=== PATIENT | male | born 1970 | race Caucasian/White ===

== ENCOUNTER 2019-09-05 17:51 | Inpatient (IN) | payer SELFPAY ==
[2019-09-05] MEDS ORDERED: Multivitamins, Adult 10 ML, Thiamine HCl 100 MG, Folic Acid 1 MG in Dextrose 5 %-0.45 %... IV ONE (18:30)
[2019-09-05 18:38] LABS: #Basophils 0.1 thou/uL (0.0-0.2); #Lymphocytes 1.5 thou/uL (1.20-3.40); #Monocytes 1.1 thou/uL (0.11-0.59); #Neutrophils 7.1 thou/uL (1.40-6.50); %Basophils 0.8 % (0.0-1.0); %Eosinophils 0.2 % (0.0-10.0); %Lymphocytes 15.1 % (21.0-51.0); %Monocytes 11.1 % (0.0-10.0); %Neutrophils 72.8 % (42.0-75.0); Hemoglobin 16.2 g/dL (14.0-18.0); Mean Corpuscular HGB CONC 35.3 g/dL (32.0-36.0); Mean Corpuscular Hemoglobin 36.7 pg (27.0-31.0); Mean Platelet Volume 9.3 fL (7.4-10.4); Platelet Count 92 thou/uL (130-400); RBC Distribution Width 12.6 % (11.5-14.5); Red Blood Cell (RBC) Count 4.42 mill/uL (4.70-6.10); White Blood Cell (WBC) Count 9.8 thou/uL (4.8-10.8)
--- NOTE | 2019-09-05 18:51 | CT ---
CT OF BRAIN PERFORMED WITHOUT CONTRAST ENHANCEMENT: 09/05/19 HISTORY: Altered mental status. The ventricular and cisternal system is within normal limits. There is some motion artifact present. There are no signs of intracerebral hemorrhage or extra-axial fluid collections. The mastoid air cell s are clear. There is some mucosal change within the right maxillary sinus. IMPRESSION: No acute intracranial abnormalities. POS: [facility]
[2019-09-05 18:53] LABS: ALT (SGPT) 55 U/L (8-55); AST (SGOT) 92 U/L (5-34); Albumin 4.1 g/dL (3.5-5.0); Alkaline Phosphatase 78 U/L (40-110); Anion Gap 21 mmol/L (10-20); BUN (Urea Nitrogen) 21 mg/dL (8.9-20.6); Bilirubin, Total 3.3 mg/dL (0.2-1.2); CK (CPK) 656 U/L (30-200); Calc. Creatinine Clearance 0 mL/min (70-130); Calcium 8.8 mg/dL (7.8-10.44); Carbon Dioxide 31 mmol/L (22-29); Chloride 87 mmol/L (98-107); Estimated GFR-MDRD 43; Globulin 2.6 g/dL (2.4-3.5); Glucose 109 mg/dL (70-105); Lipase 33 U/L (8-78); Potassium 3.1 mmol/L (3.5-5.1); Protein, Total 6.7 g/dL (6.0-8.3); Sodium 136 mmol/L (136-145)
[2019-09-05 19:07] LABS: Base Excess-Venous 8.8 mmol/L (-2.0 to 3.0); CO2 Tension (PvCO2) 30.4 mmHg (40.0-50.0); Calcium, Ionized 0.87 mmol/L (See Comments:); Chloride 90 mmol/L (98-107); Potassium 2.5 mmol/L (3.5-5.1); Sodium 132 mmol/L (138-145); T. Carbon Dioxide 30.9 mmol/L (22.0-28.0)
[2019-09-05 19:08] LABS: CKMB 5.4 ng/mL (0-6.6)
[2019-09-05] MEDS ORDERED: Lorazepam 2 MG/ML VIAL ONE (19:42)
[2019-09-05] MEDS ORDERED: D5 1/2 NS w/20 mEq KCL 1,000 ML IV SCH (19:45)
--- NOTE | 2019-09-05 19:48 | PDOC.FPRHP ---
- History of Present Illness Chief Complaint: seizure History of Present Illness: 49 yo male presents with vomiting for four days and po intolerance for 4 days. Per elderly [id number], pt had a seizure earlier today. Pt reports that he came out of the bathroom, sat on couch, started feeling weak, and he fell to the floor. He doesn't think he passed out entirely. Denied incontinence during episode. [id number] endorsed grand mal seizure as she has a hx of them too and "knows what they look like." He drinks 1/2 gallon vodka every two days. He has been trying to quit drinking. He has a hx of alcohol use/abuse and withdrawal symptoms, including hospitalization for DTs. He says he had sx of DTs last night. He had some hallucinations last night. He reports a hx of liver disease but says it's not cirrhosis. He endorses remote hx of drug use, meth/ marijuana/benzos. Last drink of alcohol was this morning, took a shot of vodka. Tries to take shots every couple of hours "to keep the DTs away." ED Course: Received ativan 1mg, a banana bag, and one liter of D5 1/2 NS with 20 KCL - Allergies/Adverse Reactions Allergies Allergy/AdvReac Type Severity Reaction Status Date / Time No Known Allergies Allergy Unverified 09/05/19 18:24 - Home Medications Medication Instructions Recorded Confirmed Type Ibuprofen 200 mg PO DAILY 09/05/19 09/05/19 History Diazepam [Valium] 5 mg PO Q4H PRN tab 09/08/19 Rx Folic Acid [Folvite] 1 mg PO DAILY #30 tab 09/08/19 Rx Multivitamin W/ Minerals 1 tab PO DAILY #30 tab 09/08/19 Rx [Theragran M] Thiamine 100 mg PO DAILY #30 tab 09/08/19 Rx chlordiazePOXIDE HCl [Librium] 50 mg PO TID cap 09/08/19 Rx - History PMHx:Type 2 diabetes, Liver disease, Alcohol use/abuse, Hx of DTs PSHx: hernia repair, oral surgery FHx:parents Social: drinking alcohol since teenager, drinks 1/2 gallon every other day; smokes 1 ppd, denies drug use currently, hx of meth/marijuana/benzos; recent divorce - Review of Systems General: reports: weight/appetite/sleep changes. denies: fever/chills Eyes: denies: eye pain, vision changes ENT: denies: nasal congestion, rhinorrhea Respiratory: denies: cough, shortness of breath Gastrointestinal: reports: nausea, vomiting, diarrhea Genitourinary: denies: dysuria Skin: denies: rashes, lesions Musculoskeletal: denies: tenderness, stiffness Neurological: reports: seizure - Vital signs BP: 127/87 HR: 120 RR: 29 Tmax: Pox: 99% on RA Wt: 94.665kg - Physical Exam Constitutional: NAD, other (drowsy, but oriented x 3) HEENT: normocephalic and atraumatic, other (dry mm) Neck: supple, FROM Chest: no-tender to palpation, no lesions Heart: RRR, normal S1/S2 Lungs: CTAB, no respiratory distress Abdomen: soft, non-tender Musculoskeletal: normal structure, ROM grossly normal Neurological: normal sensation, other (A&Ox3) Skin: other (poor turgor) Heme/Lymphatic: no unusual bruising or bleeding, other (scattered purpura bilateral arms) FMR H&P: Results - Labs Result Diagrams: 09/06/19 03:56 09/08/19 03:36 Lab results: WBC 9.8 thou/uL (4.8-10.8) 09/05/19 18:18 Hgb 16.2 g/dL (14.0-18.0) 09/05/19 18:18 Hct 46.0 % (42.0-52.0) 09/05/19 18:18 MCV 104.0 fL (78.0-98.0) H 09/05/19 18:18 Plt Count 92 thou/uL (130-400) L 09/05/19 18:18 Neutrophils % 72.8 % (42.0-75.0) 09/05/19 18:18 VBG pCO2 30.4 mmHg (40.0-50.0) L 09/05/19 18:46 VBG pO2 57.5 mmHg (35.0-45.0) H 09/05/19 18:46 Sodium 136 mmol/L (136-145) 09/05/19 18:18 Potassium 3.1 mmol/L (3.5-5.1) L 09/05/19 18:18 Chloride 87 mmol/L (98-107) L 09/05/19 18:18 Carbon Dioxide 31 mmol/L (22-29) H 09/05/19 18:18 BUN 21 mg/dL (8.9-20.6) H 09/05/19 18:18 Creatinine 1.72 mg/dL (0.7-1.3) H 09/05/19 18:18 Glucose 109 mg/dL (70-105) H 09/05/19 18:18 Lactic Acid 4.4 mmol/L (0.5-2.2) H* 09/05/19 18:51 Calcium 8.8 mg/dL (7.8-10.44) 09/05/19 18:18 Total Bilirubin 3.3 mg/dL (0.2-1.2) H 09/05/19 18:18 AST 92 U/L (5-34) H 09/05/19 18:18 ALT 55 U/L (8-55) 09/05/19 18:18 Alkaline Phosphatase 78 U/L (40-110) 09/05/19 18:18 Ammonia 35 umol/L (18-72) 09/05/19 18:18 Creatine Kinase 656 U/L (30-200) H 09/05/19 18:18 CK-MB (CK-2) 5.4 ng/mL (0-6.6) 09/05/19 18:18 B-Natriuretic Peptide 98.1 pg/mL (0-100) 09/05/19 18:18 Serum Total Protein 6.7 g/dL (6.0-8.3) 09/05/19 18:18 Albumin 4.1 g/dL (3.5-5.0) 09/05/19 18:18 Lipase 33 U/L (8-78) 09/05/19 18:18 - EKG Interpretation EKG: Sinus tach FMR H&P: A/P - Problem List (1) Alcohol withdrawal Status: Acute Code(s): F10.239 - ALCOHOL DEPENDENCE WITH WITHDRAWAL, UNSPECIFIED (2) Hypokalemia Status: Acute Code(s): E87.6 - HYPOKALEMIA (3) MARY ANN (acute kidney injury) Status: Resolved Code(s): N17.9 - ACUTE KIDNEY FAILURE, UNSPECIFIED (4) Metabolic alkalosis Status: Resolved Code(s): E87.3 - ALKALOSIS (5) DM2 (diabetes mellitus, type 2) Status: Chronic Qualifiers: Diabetes mellitus senior care insulin use: without senior care use Diabetes mellitus complication status: without complication Qualified Code(s): E11.9 - Type 2 diabetes mellitus without complications (6) Hx of drug abuse Status: Chronic Code(s): F19.11 - OTHER PSYCHOACTIVE SUBSTANCE ABUSE, IN REMISSION - Plan Patient is a 49M with pmhx of EM2, hx of drug abuse, hx of DTs, hx of "liver disease, not cirrhosis" admitted for: #Alcohol withdrawal -patient has reportedly been continuously vomiting for the last 4 days -alcohol level 0 at outside ED -extensive hx of alcohol abuse for last 2-3 years, drinking 1/2 gallon vodka q2days -patient has hx of DTs, reportedly seized this morning witnessed by his girlfriend's grandmother -received ativan and banabag in the ED -ASE protocol -thiamine, folic acid, mag -IVF -admitted to [facility] for closer monitoring #Hypokalemia -potassium 3.1 -started on D5 1/2SN + 20meqKCl -will replete and continue to monitor #Anion gap Metabolic alkalosis -pH 7.6 -likely due to patient's continuous vomiting -will continue to monitor, will likely correct with fluid resuscitation #DM2 -reportedly has hx, not on any meds -will check A1C -ISS -ACHS accuchecks Diet: Clears, advance as tolerated DVTppx; lovenox Dispo: admitted to IM for increased monitoring; ASE protocol in place; will continue to monitor electrolytes and replete as necessary Code: DNAR PCP: KEL FMKhang H&P: Upper Level - Plan Date/Time: 09/05/191946 49 yo male with alcohol use/abuse admitted for alcohol withdrawal. We admitted him to IMCU and will monitor him closely for DTs. He was placed on the ASE protocol and ordered ativan prn. We will trend his labs as his potassium has been low. He received a banana bag in the ER. He also has type 2 diabetes and initially was hyperglycemic but did not meet criteria for DKA or HHS. We will monitor his blood sugars carefully. Olivia Edwards MD, PGY-3 have evaluated this patient and agree with findings/ plan as outlined by internal combustion engine assembler resident. Pertinent changes/additions are listed here. Addendum - Attending - Attending Attestation Date/Time: 09/10/19 7449 I personally evaluated the patient and discussed the management with Dr. Enciso at time of admission. I agree with the History, Examination, Assessment and Plan documented above with any addition or exceptions noted below.
[2019-09-05 19:55] LABS: Bacteria/HPF 1+ HPF (None Seen); Bilirubin Negative (Negative); Blood, Urine 2+ (Negative); Clarity Turbid (Clear); Glucose, Urine (Dipstick) 50 mg/dL (Negative); Leukocyte Negative Leu/uL (Negative); Nitrite Negative (Negative); Protein, Urine (Dipstick) 200 mg/dL (Neg-Trace); RBC/HPF 0-3 HPF (0-3)
[2019-09-05 20:01] LABS: Amphetamine Not Detected (NotDetected); Barbiturates Screen Not Detected (NotDetected); Benzodiazepine Screen Detected (NotDetected); Cocaine Metabolite Screen Not Detected (NotDetected); Medtox Reader # READER 4; Methadone Not Detected (NotDetected); Methamphetamine Not Detected (NotDetected); Opiate Screen Not Detected (NotDetected); Oxycodone Screen Not Detected (NotDetected); Phencyclidine (PCP) Not Detected (NotDetected); THC/Cannabinoid Screen Not Detected (NotDetected); Tricyclic Screen Not Detected (NotDetected)
[2019-09-05 20:02] LABS: Medtox Control Line Valid? VALID (VALID)
[2019-09-05] MEDS ORDERED: D5 1/2 NS w/20 mEq KCL 1,000 ML ONE (20:17)
[2019-09-05] MEDS ORDERED: Ondansetron ODT 4 MG TAB SL PRN (21:56)
[2019-09-05] MEDS ORDERED: Ondansetron PF 4 MG/2 ML Vial IVP PRN (21:56)
[2019-09-05] MEDS ORDERED: Lorazepam 2 MG/ML VIAL SLOW IVP PRN (21:57)
[2019-09-05] MEDS ORDERED: Dextrose 5 %-0.45 % NaCl 1,000 ML IV SCH (22:00)
[2019-09-05 22:14] VITALS: BMI 28.3
[2019-09-05] MEDS ORDERED: Diazepam 5 MG TAB PO PRN (22:14)
[2019-09-05] MEDS ORDERED: Diazepam 5 MG TAB PO SCH (22:15)
[2019-09-05] MEDS ORDERED: HumaLOG 300 UNITS/3 ML VIAL SC PRN ×2 (22:33)
[2019-09-05] MEDS ORDERED: Dextrose 50% Abboject 50 ML SYRINGE SLOW IVP PRN (22:33)
[2019-09-05] MEDS ORDERED: Dextrose 5% in Water 1,000 ML IV PRN (22:33)
[2019-09-05 22:51] LABS: Troponin I 0.039 ng/mL (< 0.028)
[2019-09-05 22:54] LABS: Anion Gap 14 mmol/L (10-20); BUN (Urea Nitrogen) 19 mg/dL (8.9-20.6); Calc. Creatinine Clearance 88 mL/min (70-130); Calcium 8.4 mg/dL (7.8-10.44); Carbon Dioxide 36 mmol/L (22-29); Chloride 87 mmol/L (98-107); Estimated GFR-MDRD 55; Glucose 148 mg/dL (70-105); Sodium 134 mmol/L (136-145)
[2019-09-05] MEDS: Sodium Chloride 0.9% 1,000 ML IV SCH (23:08)
[2019-09-05 23:11] LABS: Potassium 2.5 mmol/L (3.5-5.1)
[2019-09-05] MEDS ORDERED: Potassium Chloride 40 MEQ in Sodium Chloride 0.9% 500 ML IVPB SCH (23:59)
[2019-09-06 01:25] LABS: Troponin I 0.029 ng/mL (< 0.028)
[2019-09-06 04:13] LABS: #Monocytes 0.7 thou/uL (0.11-0.59); #Neutrophils 4.4 thou/uL (1.40-6.50); %Basophils 0.4 % (0.0-1.0); %Eosinophils 0.3 % (0.0-10.0); %Lymphocytes 28.3 % (21.0-51.0); %Monocytes 9.8 % (0.0-10.0); %Neutrophils 61.3 % (42.0-75.0); Mean Corpuscular HGB CONC 34.5 g/dL (32.0-36.0); Mean Corpuscular Hemoglobin 36.3 pg (27.0-31.0); Platelet Count 82 thou/uL (130-400); RBC Distribution Width 12.5 % (11.5-14.5); Red Blood Cell (RBC) Count 4.14 mill/uL (4.70-6.10); White Blood Cell (WBC) Count 7.1 thou/uL (4.8-10.8)
[2019-09-06 04:24] LABS: Hemoglobin A1c 5.4 % (4.0-6.0)
[2019-09-06 04:34] LABS: Anion Gap 12 mmol/L (10-20); BUN (Urea Nitrogen) 16 mg/dL (8.9-20.6); Calc. Creatinine Clearance 108 mL/min (70-130); Calcium 8.2 mg/dL (7.8-10.44); Carbon Dioxide 34 mmol/L (22-29); Chloride 92 mmol/L (98-107); Estimated GFR-MDRD 70; Glucose 113 mg/dL (70-105); Sodium 135 mmol/L (136-145)
[2019-09-06] MEDS: Diazepam 5 MG TAB PO PRN ×4 (04:37→23:39)
[2019-09-06 04:38] LABS: Potassium 2.8 mmol/L (3.5-5.1)
[2019-09-06 04:42] VITALS: BP 153/104
[2019-09-06] MEDS ORDERED: Potassium Chloride 40 MEQ in Premix Bag 1 BAG IVPB ONE (04:46)
[2019-09-06] MEDS ORDERED: Potassium Chloride 40 MEQ in Sodium Chloride 0.9% 250 ML 250 ML IVPB SCH (05:00)
[2019-09-06] MEDS ORDERED: Metoclopramide HCl 10 MG/2 ML VIAL IVP SCH (05:00)
[2019-09-06] MEDS: Sodium Chloride 0.9% 1,000 ML IV SCH ×3 (05:15→16:10)
--- NOTE | 2019-09-06 06:37 | PDOC.FM ---
- Subjective Subjective: Pt feels slightly agitated and shaky. Pt has hx of DT's and withdraw seizures. hx of liver disease, was being treated in [place], recently moved here. well known etoh abuse. - Objective MAR Reviewed: Yes Vital Signs & Weight: Vital Signs (12 hours) Temp Pulse Resp BP Pulse Ox 09/06/19 04:00 98.3 F 114 H 24 H 153/104 H 95 09/06/19 03:00 98.3 F 96 24 H 139/97 H 95 09/05/19 23:00 98.3 F 113 H 24 H 118/92 H 95 09/05/19 22:03 95 09/05/19 22:00 98.2 F 114 H 30 H 121/89 94 L Weight Weight 94.665 kg I&O: 09/04/19 09/05/19 09/06/19 06:59 06:59 06:59 Intake Total 2100 Output Total 300 Balance 1800 Result Diagrams: 09/06/19 03:56 09/06/19 03:56 Phys Exam - Physical Examination shaky, slightly agitated HEENT: moist MMs scleral icterus Neck: no nodes, no JVD, supple Respiratory: no wheezing, no rales, no rhonchi, clear to auscultation bilateral Cardiovascular: no significant murmur tachycardic Gastrointestinal: soft, non-tender, positive bowel sounds Musculoskeletal: no edema, pulses present Neurological: non-focal, moves all 4 limbs slight asterixis Psychiatric: normal affect, A&O x 3 Dx/Plan (1) MARY ANN (acute kidney injury) Code(s): N17.9 - ACUTE KIDNEY FAILURE, UNSPECIFIED Status: Acute (2) Alcohol withdrawal Code(s): F10.239 - ALCOHOL DEPENDENCE WITH WITHDRAWAL, UNSPECIFIED Status: Acute (3) Hypokalemia Code(s): E87.6 - HYPOKALEMIA Status: Acute (4) Metabolic alkalosis Code(s): E87.3 - ALKALOSIS Status: Acute (5) DM2 (diabetes mellitus, type 2) Status: Chronic - Plan Plan: Patient is a 49M with pmhx of EM2, hx of drug abuse, hx of DTs, hx of "liver disease, not cirrhosis" admitted for: #Alcohol withdrawal -patient has reportedly been continuously vomiting for the last 4 days before admission -alcohol level 0 at outside ED -extensive hx of alcohol abuse for last 2-3 years, drinking 1/2 gallon vodka q2days -patient has hx of DTs, reportedly seized morning of admission witnessed by his girlfriend's grandmother -received ativan and banabag in the ED -ASE protocol, PRN ativan. Nursing has not been following protocol, had conversation and will be following ASE per protocol. -thiamine, folic acid, mag -IVF -admitted to IMCU for closer monitoring #MARY ANN, improved - Cr 3.04-> 1.13 - post IVF's #Hypokalemia -potassium 3.1-> 2.8, BMP repeat at 10:30 -started on D5 1/2SN + 20meqKCl -will replete and continue to monitor #Anion gap Metabolic alkalosis -pH 7.6 -likely due to patient's continuous vomiting -will continue to monitor, will likely correct with fluid resuscitation #DM2 -reportedly has hx, not on any meds -will check A1C -ISS -ACHS accuchecks Diet: Clears, advance as tolerated DVTppx; lovenox Dispo: admitted to IMCU for increased monitoring; ASE protocol in place; will continue to monitor electrolytes and replete as necessary Code: DNAR PCP: KEL Addendum - Attending - Attending Attestation Date/Time: 09/06/19 1040 I personally evaluated the patient and discussed the management with Dr. Quintanilla. I agree with the History, Examination, Assessment and Plan documented above with any addition or exceptions noted below.
[2019-09-06 07:06] LABS: Prothrombin Time 13.2 SEC (12.0-14.7)
[2019-09-06] MEDS: Multivitamin W/ Minerals 1 TAB PO SCH (07:33)
[2019-09-06] MEDS: Magnesium Oxide 400 MG TAB PO SCH (07:33)
[2019-09-06] MEDS: Folic Acid 1 MG TAB PO SCH (07:33)
[2019-09-06] MEDS: Thiamine 100 MG TAB PO SCH (07:33)
[2019-09-06] MEDS: Enoxaparin Sodium 40 MG/0.4 ML SYRINGE SC SCH (07:33)
[2019-09-06] MEDS ORDERED: Potassium Chloride 20 MEQ TAB PO SCH ×2 (09:30→11:30)
[2019-09-06] MEDS: chlordiazePOXIDE HCl 25 MG CAP PO SCH ×3 (10:41→21:41)
[2019-09-06 11:02] LABS: Anion Gap 12 mmol/L (10-20); BUN (Urea Nitrogen) 14 mg/dL (8.9-20.6); Calc. Creatinine Clearance 125 mL/min (70-130); Carbon Dioxide 31 mmol/L (22-29); Chloride 96 mmol/L (98-107); Estimated GFR-MDRD 82; Glucose 99 mg/dL (70-105); Potassium 3.1 mmol/L (3.5-5.1); Sodium 136 mmol/L (136-145)
[2019-09-06 17:01] LABS: Anion Gap 12 mmol/L (10-20); BUN (Urea Nitrogen) 11 mg/dL (8.9-20.6); Calc. Creatinine Clearance 131 mL/min (70-130); Calcium 8.3 mg/dL (7.8-10.44); Carbon Dioxide 28 mmol/L (22-29); Chloride 100 mmol/L (98-107); Estimated GFR-MDRD 87; Glucose 77 mg/dL (70-105); Sodium 136 mmol/L (136-145)
[2019-09-07] MEDS: Sodium Chloride 0.9% 1,000 ML IV SCH ×2 (02:00→07:30)
[2019-09-07 04:25] LABS: Anion Gap 11 mmol/L (10-20); BUN (Urea Nitrogen) 7 mg/dL (8.9-20.6); Calc. Creatinine Clearance 151 mL/min (70-130); Carbon Dioxide 24 mmol/L (22-29); Chloride 104 mmol/L (98-107); Estimated GFR-MDRD Greater than 90; Glucose 81 mg/dL (70-105); Potassium 3.4 mmol/L (3.5-5.1); Sodium 136 mmol/L (136-145)
[2019-09-07] MEDS: chlordiazePOXIDE HCl 25 MG CAP PO SCH ×4 (04:55→21:08)
--- NOTE | 2019-09-07 05:34 | PDOC.FM ---
- Subjective Subjective: Pt notes feeling much better this morning, only mild-moderate tremulousness remains States he is interested in ways he can make his liver better- discussed alcohol cessation Pt understands he cannot take the librium and drink upon discharge No hallucinations, sz activity, or acute events overnight - Objective Vital Signs & Weight: Vital Signs (12 hours) Temp Pulse Ox 09/07/19 03:55 97.9 F 09/07/19 00:00 98.7 F 09/06/19 20:00 98.3 F 98 Weight Weight 98.021 kg Most Recent Monitor Data Heart Rate from ECG 76 NIBP 98/76 NIBP BP-Mean 83 Respiration from ECG 15 SpO2 93 I&O: 09/05/19 09/06/19 09/07/19 06:59 06:59 06:59 Intake Total 2100 2860 Output Total 600 2325 Balance 1500 535 Result Diagrams: 09/06/19 03:56 09/07/19 03:21 Phys Exam - Physical Examination Constitutional: NAD HEENT: moist MMs Neck: no JVD, full ROM Respiratory: no wheezing, no rales, no rhonchi Cardiovascular: RRR, no significant murmur Gastrointestinal: soft, non-tender Musculoskeletal: no edema, pulses present Mild tremor of the hands bilaterally Psychiatric: normal affect, A&O x 3 Skin: no rash, cap refill <2 seconds Dx/Plan (1) Delirium tremens Code(s): F10.231 - ALCOHOL DEPENDENCE WITH WITHDRAWAL DELIRIUM Status: Acute (2) MARY ANN (acute kidney injury) Code(s): N17.9 - ACUTE KIDNEY FAILURE, UNSPECIFIED Status: Resolved (3) Hypokalemia Code(s): E87.6 - HYPOKALEMIA Status: Acute (4) Metabolic alkalosis Code(s): E87.3 - ALKALOSIS Status: Resolved (5) DM2 (diabetes mellitus, type 2) Status: Chronic Qualifiers: Diabetes mellitus buttermilk drier operator insulin use: without senior living use Diabetes mellitus complication status: without complication Qualified Code(s): E11.9 - Type 2 diabetes mellitus without complications (6) Hx of drug abuse Code(s): F19.11 - OTHER PSYCHOACTIVE SUBSTANCE ABUSE, IN REMISSION Status: Chronic - Plan Plan: Patient is a 49M with pmhx of EM2, hx of drug abuse, hx of DTs, hx of "liver disease, not cirrhosis" admitted for: Alcohol withdrawal -ASE protocol, tx with diazepam per protocol and scheduled librium -current ASE ratin -required 4 diazepam yesterday -thiamine, folic acid, mag -IVF MARY ANN, resolved - Cr 3.04-> 0.81 Hypokalemia -potassium 3.4 this morning -will replete and continue to monitor Anion gap Metabolic alkalosis -pH 7.6 initially -likely resolved following correction of metabolic derangements DM2 -reportedly has hx, not on any meds -A1c 5.4 Diet: Clears, advance as tolerated DVTppx; lovenox Code: DNAR Dispo: admitted to [facility] for increased monitoring; ASE protocol in place; required diazepam tx for withdrawal sx last night based on ASE protocol, will likely need to watch him for the remainder of the day and possible DC home later today vs tomorrow. Pt will likely require librium taper upon discharge if he is willing to continue his alcohol cessation. PCP: KEL
[2019-09-07] MEDS: Magnesium Oxide 400 MG TAB PO SCH (07:29)
[2019-09-07] MEDS: Enoxaparin Sodium 40 MG/0.4 ML SYRINGE SC SCH (07:30)
[2019-09-07] MEDS: Thiamine 100 MG TAB PO SCH (07:30)
[2019-09-07] MEDS: Multivitamin W/ Minerals 1 TAB PO SCH (07:30)
[2019-09-07] MEDS: Folic Acid 1 MG TAB PO SCH (07:30)
[2019-09-07] MEDS ORDERED: Potassium Chloride 20 MEQ TAB PO SCH (07:45)
--- NOTE | 2019-09-07 12:03 | PRG ---
DATE OF SERVICE: 09/07/2019 Please see the note from Dr. Valenzuela, for which I agree. This gentleman is doing drastically better from a tremor and delirium tremens standpoint. Getting a lot less as needed Valium and is on the consistent Librium. If he can go almost today without needing any more Valium, we will send out just on a Librium taper and do highly recommend outpatient therapy. It sounds like he does not have insurance and so a minimum go to [facility]. Job ID: [id number]
[2019-09-07] MEDS: Diazepam 5 MG TAB PO PRN ×2 (14:19→22:17)
[2019-09-08 04:56] LABS: Anion Gap 12 mmol/L (10-20); BUN (Urea Nitrogen) 6 mg/dL (8.9-20.6); Calc. Creatinine Clearance 178 mL/min (70-130); Calcium 8.4 mg/dL (7.8-10.44); Carbon Dioxide 24 mmol/L (22-29); Chloride 106 mmol/L (98-107); Estimated GFR-MDRD Greater than 90; Glucose 91 mg/dL (70-105); Potassium 3.5 mmol/L (3.5-5.1); Sodium 138 mmol/L (136-145)
[2019-09-08] MEDS: chlordiazePOXIDE HCl 25 MG CAP PO SCH ×2 (05:16→11:14)
--- NOTE | 2019-09-08 05:29 | PDOC.FM ---
- Subjective Subjective: Pt doing well this morning, denies any events overnight Feels his tremors have improved Looking forward to discharge today Agrees to cease alcohol consumption and follow librium taper - Objective Vital Signs & Weight: Vital Signs (12 hours) Temp Pulse Ox 09/08/19 04:00 98.1 F 09/08/19 00:00 99.4 F 09/07/19 21:17 98.7 F 09/07/19 20:00 97 Weight Weight 98.021 kg Most Recent Monitor Data Heart Rate from ECG 91 NIBP 132/66 NIBP BP-Mean 88 Respiration from ECG 19 SpO2 97 I&O: 09/06/19 09/07/19 09/08/19 06:59 06:59 06:59 Intake Total 2100 4515 340 Output Total 600 2325 2600 Balance 1500 2190 -2260 Result Diagrams: 09/06/19 03:56 09/08/19 03:36 Phys Exam - Physical Examination Constitutional: NAD HEENT: moist MMs Neck: supple, full ROM Respiratory: no wheezing, clear to auscultation bilateral Cardiovascular: RRR, no significant murmur Gastrointestinal: soft, non-tender Musculoskeletal: no edema, pulses present Neurological: moves all 4 limbs Psychiatric: normal affect, A&O x 3 Skin: no rash Dx/Plan (1) Delirium tremens Code(s): F10.231 - ALCOHOL DEPENDENCE WITH WITHDRAWAL DELIRIUM Status: Acute (2) MARY ANN (acute kidney injury) Code(s): N17.9 - ACUTE KIDNEY FAILURE, UNSPECIFIED Status: Resolved (3) Hypokalemia Code(s): E87.6 - HYPOKALEMIA Status: Acute (4) Metabolic alkalosis Code(s): E87.3 - ALKALOSIS Status: Resolved (5) DM2 (diabetes mellitus, type 2) Status: Chronic Qualifiers: Diabetes mellitus snf insulin use: without snf use Diabetes mellitus complication status: without complication Qualified Code(s): E11.9 - Type 2 diabetes mellitus without complications (6) Hx of drug abuse Code(s): F19.11 - OTHER PSYCHOACTIVE SUBSTANCE ABUSE, IN REMISSION Status: Chronic - Plan Plan: Patient is a 49M with pmhx of EM2, hx of drug abuse, hx of DTs, hx of "liver disease, not cirrhosis" admitted for: Alcohol withdrawal -ASE protocol, tx with diazepam per protocol and scheduled librium -current ASE ratin -required 2 diazepam yesterday -thiamine, folic acid, mag - to continue as outpt MARY ANN, resolved Hypokalemia - resolved Anion gap Metabolic alkalosis -appears resolved based on BMP DM2 - diet controlled -reportedly has hx, not on any meds -A1c 5.4 Diet: Clears, advance as tolerated DVTppx; lovenox Code: DNAR Dispo: Admitted to IMCU for increased monitoring. ASE protocol in place. Required diazepam tx for withdrawal sx last night based on ASE protoco. Has continually required less benzo tx per protocol. Will plan to discharge home today with an increase in his librium and taper it.
[2019-09-08] MEDS: Thiamine 100 MG TAB PO SCH (07:45)
[2019-09-08] MEDS: Multivitamin W/ Minerals 1 TAB PO SCH (07:45)
[2019-09-08] MEDS: Folic Acid 1 MG TAB PO SCH (07:45)
[2019-09-08] MEDS: Magnesium Oxide 400 MG TAB PO SCH (07:45)
[2019-09-08] MEDS: Enoxaparin Sodium 40 MG/0.4 ML SYRINGE SC SCH (07:46)
--- NOTE | 2019-09-08 10:56 | PRG ---
DATE OF SERVICE: 09/08/2019 Please see note [address] Valenzuela, for which I agree. The patient was seen, evaluated, and discussed with the residents by bedside and examined. The patient is doing phenomenally better. Feels like he is needing less benzodiazepines. No more as needed Valium at this point in time. Has social support setup. He is ready to be discharged and will be. Job ID: [id number]
[2019-09-08 11:24] VITALS: TEMP 98
--- NOTE | 2019-09-08 12:55 | DIS ---
DATE OF ADMISSION: 09/05/2019 DATE OF DISCHARGE: 09/08/2019 ADMITTING ATTENDING: Carmelo Cox MD. DISCHARGE ATTENDING: Tulio Pedraza MD. RESIDENT: Alexander Valenzuela DO. CONSULTS: None. PROCEDURES: None. IMAGING: Brain CT without contrast showing no acute intracranial abnormalities. PRIMARY DIAGNOSES: Delirium tremens, acute alcohol withdrawal, acute kidney injury, metabolic alkalosis. SECONDARY DIAGNOSES: Hypokalemia, diabetes mellitus type 2, history of drug abuse. DISCHARGE MEDICATIONS: 1. Ibuprofen 200 mg daily. 2. Librium 50 mg p.o. t.i.d. for 3 days, and then b.i.d. for 3 days, then daily for 3 days. 3. Folvite 1 mg p.o. daily. 4. Theragran one tablet p.o. daily. 5. Thiamin 100 mg p.o. daily. HISTORY OF PRESENT ILLNESS AND HOSPITAL COURSE: This is a 49-year-old male, who presented to the ED with vomiting for 4 days. The patient's elderly uerurj-mk-ued noted that he had a seizure earlier in the day. The patient reported that since his divorce 2 years ago, he has been drinking approximately a half a gallon of vodka every 2 days. He has recently been trying to quit drinking with his last drink approximately 4 days prior to admission. The patient notes that he had a history of DTs with previous hospitalization in his past. The patient noted a remote history of drug use including methamphetamines, marijuana, and benzodiazepines. The patient received 1 mg of Ativan in the emergency department as well as a banana bag and a L of D5 1/2 normal saline with 20 KCl. The patient's labs were significant for a blood gas showing a metabolic alkalosis, CMP showing hypokalemia, acute kidney injury with a creatinine of 1.72, a bilirubin of 3.3, and an indeterminate troponin. The patient was subsequently admitted to the hospital for MARVEL protocol and delirium tremens. The patient's troponin subsequently trended down. His acute kidney injury resolved with intravenous fluids. His delirium tremens was treated with MARVEL protocol and scheduled Librium with p.r.n. Valium. At the time of discharge, the patient had not required any Valium for greater than 12 hours and had an MARVEL score of 7. The patient was discharged with a Librium taper and educated on the risks of drinking while taking Librium. He reported that he plans to continue his alcohol cessation and expressed understanding of these directions. DISCHARGE INSTRUCTIONS: 1. Location: Home. 2. Diet: Diabetic. 3. Activity: As tolerated. 4. Followup: PCP within the next 7 days. Job ID: [id number]
--- NOTE | 2019-09-10 21:41 | PQF ---
Roberto Romo RUSSEL B MD [id number] CLINICAL DOCUMENTATION CLARIFICATION FORM: POST DISCHARGE Addendum to original discharge summary date: ____ Late entry note date: __ DATE:09/10/2019 ATTN: ERIN FARFAN MD Please exercise your independent, professional judgment in responding to the clarification form. Clinical indicators are provided on the bottom of this form for your review Please check appropriate box(s): kindly clarify the diagnosis occasioning on admission [ ] Acute alcohol withdrawal with delirium [ ] Acute kidney injury [ ] Other diagnosis [ ] Unable to determine For continuity of documentation, please document condition throughout progress notes and discharge summary. Thank You. CLINICAL INDICATORS - SIGNS / SYMPTOMS / LABS 49 yo male with alcohol use /abuse admitted for alcohol withdrawal. We admitted him to [facility] and will monitor him closely for DTs-Documented in H&P on 09/04 by Lenka Enciso MD Social:Drinking alcohol since teenager, drinks 1/2 gallon every other day- Documented in H&P on 09/04 by Lenka Enciso MD Patient has reportedly been continuously vomiting for the las 4 days-Documented in H&P on 09/04 by Lenka Enciso MD Alcohol level 0 at outside ED-Documented in H&P on 09/04 by Lenka Enciso MD Alcohol withdrawal-Documented in H&P on 09/04 by Lenka Enciso MD Creatinine-1.72-Documented in H&P on 09/04 by Lenka Enciso MD MARY ANN-Documented in H&P on 09/04 by Lenka Enciso MD RISK FACTORS Social:Drinking alcohol since teenager, drinks 1/2 gallon every other day- Documented in H&P on 09/04 by Lenka Enciso MD Creatinine-1.72-Documented in H&P on 09/04 by Lenka Enciso MD TREATMENTS: Received Ativan 1 mg a banana bag and one liter of D5 1/2 NS with 20 KCL- Documented in H&P on 09/04 by Fernie, MARY ANN resolved with intravenous fluids-Documented in discharge summary on 09/07 by Alexander Valenzuela DO [employer] Timothy Lei MD (This form is maintained as a part of the permanent medical record) 2014 [employer] All Rights Reserved [email or web address]
--- NOTE | 2019-09-14 13:33 | EKG ---
Test Reason : Blood Pressure : / mmHG Vent. Rate : 125 BPM Atrial Rate : 125 BPM P-R Int : 124 ms QRS Dur : 086 ms QT Int : 336 ms P-R-T Axes : 022 -24 -16 degrees QTc Int : 484 ms Sinus tachycardia Possible Left atrial enlargement Cannot rule out Anterior infarct , age undetermined Abnormal ECG Confirmed by DANIELA CARRINGTON, BHAVANI ([id number]), restaurant expeditor ELMIRA ALMANZA ([id number]) on 09/14/2019 1:33:24 PM Referred By: Confirmed By:BHAVANI SUAREZ MD
== END 2019-09-08 12:03 | disposition home or self-care (01) | DRG 897 ==
LOC: ERS 17:51 → ERHOLD 19:53 → IMCU/EMU 21:54
PROVIDERS: ADMIT Family Medicine; ATTEND Family Medicine
PROC: HZ2ZZZZ Detoxification Services for Substance Abuse Treatment (ICD-10-PCS; principal; 2019-09-05)
DX: F10.231 Alcohol dependence with withdrawal delirium (principal); N17.9 Acute kidney failure, unspecified; E87.3 Alkalosis; E87.6 Hypokalemia; F19.11 Other psychoactive substance abuse, in remission; Y90.0 Blood alcohol level of less than 20 mg/100 ml; Z66 Do not resuscitate; E11.65 Type 2 diabetes mellitus with hyperglycemia; R79.9 Abnormal finding of blood chemistry, unspecified
CPT/HCPCS: 36415; 36416; 70450; 80048; 80306; 81003; 81015; 82010; 82140; 82330; 82550; 82553; 82607; 82746; 82803; 83036; 83605; 83690; 83735; 83880; 83930; 83935; 84484; 85025; 85610; 87040; 87086; 93005; 96365; 96366; 96375; J1650; J2060; J3411; J3475; J3480; J3490; J7042; J7050

== ENCOUNTER 2019-11-13 11:04 | Inpatient (IN) | payer SELFPAY ==
[2019-11-13] MEDS ORDERED: Lorazepam 2 MG/ML VIAL ONE ×2 (11:54→13:48)
[2019-11-13] MEDS ORDERED: Lorazepam 2 MG/ML VIAL SLOW IVP SCH (12:30)
[2019-11-13] MEDS ORDERED: Potassium Chloride 20 MEQ in Premix Bag 1 BAG IVPB SCH (12:30)
[2019-11-13] MEDS ORDERED: Potassium Chloride 20 MEQ/100 ML PREMIX BAG ONE (13:01)
[2019-11-13] MEDS ORDERED: Potassium Chloride 40 MEQ in Sodium Chloride 0.9% 250 ML 250 ML IVPB SCH ×2 (14:00→15:00)
[2019-11-13] MEDS ORDERED: Magnesium 2 GM/50 ML 2 GM in Premix Bag 1 BAG IVPB SCH (14:15)
[2019-11-13] MEDS ORDERED: Lorazepam 1 MG TAB PO PRN (14:37)
[2019-11-13 14:49] VITALS: BMI 29.8
[2019-11-13 14:49] LABS: Anion Gap 20 mmol/L (10-20); BUN (Urea Nitrogen) 10 mg/dL (8.9-20.6); Calc. Creatinine Clearance 0 mL/min (70-130); Carbon Dioxide 27 mmol/L (22-29); Chloride 89 mmol/L (98-107); Estimated GFR-MDRD 77; Glucose 135 mg/dL (70-105); Sodium 133 mmol/L (136-145)
[2019-11-13 14:53] LABS: Potassium 2.7 mmol/L (3.5-5.1)
--- NOTE | 2019-11-13 15:13 | PDOC.HHP ---
Hospitalist HPI - History of Present Illness fall History of Present Illness: 49yo M w/ MHx of alcohol abuse, delirium tremens presents after a fall. Patient has been drinking for the past week, barely eating, and over the past few days has had nausea and vomiting as well. Earlier, had a mechanical fall in which hit back of head and started bleeding. initially presented to [facility] and was found to have K 2.2 so was transfered to [facility] on encounter laying comfortably in bed and complains of progressively worsening tremors, mild RUQ pain. Denies fatigue, syncope, presyncope, chest pain, palpitations, hematemesis, epigastric pain ED Course: In the ED, found to have hypokalemia so was supplemented, IVF were continued, and he was admitted to the telemtery floor Hospitalist ROS - Review of Systems All other systems reviewed; all pertinent +/- noted in HPI/Subj Hospitalist History - Past Medical History Source: patient, old records Cardiac: reports: no pertinent history Pulmonary: reports: no pertinent history RESIDENTIAL ASSISTANT: reports: no pertinent history Gastrointestinal: denies: GERD, GI bleed, Gastritis Hepatobiliary: denies: Cirrhosis Psych: reports: Addictions. denies: Anxiety Endocrine: denies: Diabetes - Past Surgical History Past Surgical History: reports: no pertinent history - Family History Family History: reports: no pertinent history - Social History Smoking Status: Current every day smoker (1 pack/day; 20 PY) Tobacco Type: cigarettes Alcohol: reports: Heavy Drugs: reports: marijuana Activity level: independent ambulation - Exam General Appearance: NAD, awake alert Eye: PERRL, anicteric sclera ENT - other findings: laceration with dry blood over the posterosuperior scalp Heart: no murmur, no gallops, no rubs Heart - other findings: tachycardia; sinus based on telemetry Respiratory: CTAB, no wheezes, no rales, no ronchi, normal chest expansion, no tachypnea, normal percussion Gastrointestinal: soft, non-distended, normal bowel sounds Gastrointestinal - other findings: RUQ tenderness and guarding Extremities: no edema Extremities - other findings: mild bilateral hand tremor Psychiatric: normal affect, normal behavior, A&O x 3 Hospitalist Results - Labs Result Diagrams: 11/13/19 14:17 Lab results: Sodium 133 mmol/L (136-145) L 11/13/19 14:17 Potassium 2.7 mmol/L (3.5-5.1) L* 11/13/19 14:17 Chloride 89 mmol/L (98-107) L 11/13/19 14:17 Carbon Dioxide 27 mmol/L (22-29) 11/13/19 14:17 BUN 10 mg/dL (8.9-20.6) 11/13/19 14:17 Creatinine 1.03 mg/dL (0.7-1.3) 11/13/19 14:17 Glucose 135 mg/dL (70-105) H 11/13/19 14:17 Calcium 8.0 mg/dL (7.8-10.44) 11/13/19 14:17 - EKG Interpretation EKG: sinus tachycardia with no conduction abnormalities and no signs of acute ischemia - Radiology Interpretation CT scan - head Status: report reviewed by md Hospitalist H&P A/P - Problem (1) Alcoholic hepatitis Code(s): K70.10 - ALCOHOLIC HEPATITIS WITHOUT ASCITES Status: Acute (2) Alcohol withdrawal Code(s): F10.239 - ALCOHOL DEPENDENCE WITH WITHDRAWAL, UNSPECIFIED Status: Acute (3) Hypokalemia Code(s): E87.6 - HYPOKALEMIA Status: Acute (4) MARY ANN (acute kidney injury) Code(s): N17.9 - ACUTE KIDNEY FAILURE, UNSPECIFIED Status: Resolved (5) DM2 (diabetes mellitus, type 2) Status: Chronic Qualifiers: Diabetes mellitus neuropsychiatrist insulin use: without penitentiary use Diabetes mellitus complication status: without complication Qualified Code(s): E11.9 - Type 2 diabetes mellitus without complications - Plan Plan: #alcohol withdrawal #alcoholic hepatitis currently ASE < 8 but worsnening despite alcohol level of 132 -librium 25mg PO TID, ativan PRN breakthrough -if insufficient, can increase librium to 50 -folate, thiamine, IVF #severe asymptomatic hypokalemia #vomiting #combined metabolic acidosis and alkalosis zofran, supplement K, IVF #scalp laceration -minimal bleeding that stopped -tylenol PRN; if can't tolerate morphine 1mg IVP PRN Disposition/PPx -full code -DVT PPx: lovenox -GI PPx: no Ix
[2019-11-13] MEDS ORDERED: Ondansetron ORAL SOLN. 4 MG/5 ML UDCUP PO PRN (15:19)
[2019-11-13] MEDS ORDERED: Ondansetron PF 4 MG/2 ML Vial IVP PRN (15:20)
[2019-11-13] MEDS: Acetaminophen 325 MG TAB PO PRN ×2 (15:40→21:20)
[2019-11-13] MEDS ORDERED: HumaLOG 300 UNITS/3 ML VIAL SC PRN ×2 (17:00→22:21)
[2019-11-13] MEDS: Lorazepam 1 MG TAB PO PRN (19:32)
[2019-11-13 20:41] LABS: Magnesium 2.4 mg/dL (1.6-2.6); Potassium 3.4 mmol/L (3.5-5.1)
[2019-11-13] MEDS: chlordiazePOXIDE HCl 25 MG CAP PO SCH (21:20)
[2019-11-14] MEDS: Lorazepam 1 MG TAB PO PRN (03:40)
[2019-11-14] MEDS: Acetaminophen 325 MG TAB PO PRN ×3 (03:40→17:40)
[2019-11-14 04:50] LABS: Anion Gap 12 mmol/L (10-20); BUN (Urea Nitrogen) 9 mg/dL (8.9-20.6); Calc. Creatinine Clearance 152 mL/min (70-130); Calcium 7.8 mg/dL (7.8-10.44); Carbon Dioxide 28 mmol/L (22-29); Chloride 97 mmol/L (98-107); Estimated GFR-MDRD Greater than 90; Glucose 95 mg/dL (70-105); Magnesium 2.4 mg/dL (1.6-2.6); Potassium 3.3 mmol/L (3.5-5.1); Sodium 134 mmol/L (136-145)
[2019-11-14] MEDS: Folic Acid 1 MG TAB PO SCH (08:14)
[2019-11-14] MEDS: Thiamine 100 MG TAB PO SCH (08:15)
[2019-11-14] MEDS: Enoxaparin Sodium 30 MG/0.3 ML SYRINGE SC SCH (08:15)
[2019-11-14] MEDS: chlordiazePOXIDE HCl 25 MG CAP PO SCH ×3 (08:20→20:57)
[2019-11-14] MEDS ORDERED: NS 0.9% w/ 40 MEQ KCL 1,000 ML IV SCH (10:15)
[2019-11-14] MEDS ORDERED: Potassium Chloride 40 MEQ in Sodium Chloride 0.9% 500 ML IVPB SCH (10:15)
[2019-11-14] MEDS ORDERED: traMADol HCl 50 MG TAB PO SCH (11:15)
[2019-11-14] MEDS: traMADol HCl 50 MG TAB PO PRN (15:28)
--- NOTE | 2019-11-14 20:01 | PDOC.HOSPP ---
- Subjective Encounter Date: 11/14/19 Encounter Time: 09:00 Subjective: no overnight events. Remains in mild withdrawal on scheduled librium with addition of 4mg ativan for breakthough. This morning, complains of scalp pain. no other complaints. - Objective Vital Signs & Weight: Vital Signs (12 hours) Temp Pulse Pulse Pulse Resp BP BP 11/14/19 15:19 98.0 F 103 H 19 132/88 11/14/19 12:05 101 H 105 H 132/81 11/14/19 11:36 136/86 11/14/19 11:34 97.8 F 99 16 11/14/19 10:55 100 141/91 H 11/14/19 08:08 98.2 F 99 11 L 149/96 H BP BP BP Pulse Ox 11/14/19 15: 132/88 93 L 11/14/19 12:05 137/84 11/14/19 11:36 11/14/19 11:34 136/86 94 L 11/14/19 10:55 11/14/19 08:08 149/96 H 96 Weight Admit Weight 220 lb Weight 220 lb I&O: 11/13/19 11/14/19 11/15/19 06:59 06:59 06:59 Intake Total 1740 2260 Output Total 450 1430 Balance 1290 830 Result Diagrams: 11/14/19 04:03 Additional Labs: Accuchecks 11/14/19 11/14/19 11/14/19 16:46 11:14 05:40 POC Glucose 111 H 106 103 11/14/19 11/13/19 03:38 20:55 POC Glucose 91 141 H Hospitalist ROS - Review of Systems Constitutional: denies: fever, chills, sweats, weakness, malaise, other Respiratory: denies: cough, dry, shortness of breath, hemoptysis, SOB with excertion, pleuritic pain, sputum, wheezing, other Cardiovascular: denies: chest pain, palpitations, orthopnea, paroxysmal noc. dyspnea, edema, light headedness, other Gastrointestinal: denies: nausea, vomiting, abdominal pain, diarrhea, constipation, melena, hematochezia, other - Medication Medications: Active Medications Generic Name Dose Route Start Last Admin Trade Name Freq PRN Reason Stop Dose Admin Acetaminophen 650 mg 11/13/19 15:20 11/14/19 17:40 Tylenol PO 650 mg Q6H PRN Administration scalp pain Enoxaparin Sodium 30 mg 11/14/19 09:00 11/14/19 08:15 Lovenox SC 30 mg 0900 TWAN Administration Folic Acid 1 mg 11/14/19 09:00 11/14/19 08:14 Folvite PO 1 mg DAILY TWAN Administration Potassium Chloride/Sodium Chloride 1,000 mls @ 100 mls/hr 11/14/19 10:15 11:39 Ns 0.9% W/ 40 Meq Kcl IV 11/14/19 20:26 1,000 mls NOW TWAN Administration Insulin Human Lispro 0 units 11/13/19 22:21 11/13/19 22:49 Humalog SC 2 unit .BEDTIME SLIDING SC PRN Administration Bedtime Correctional Scale Lorazepam 2 mg 11/13/19 15:20 11/14/19 03:40 Ativan PO 2 mg Q2H PRN Administration Alcohol Withdrawal Ondansetron HCl 4 mg 11/13/19 15:20 11/13/19 15:40 Zofran IVP 4 mg Q6H PRN Administration Nausea/Vomiting Thiamine HCl 100 mg 11/14/19 09:00 11/14/19 08:15 Thiamine PO 100 mg DAILY TWAN Administration Tramadol HCl 50 mg 11/14/19 15:11 11/14/19 15:28 Ultram PO 50 mg Q8H PRN Administration Pain - Exam General Appearance: NAD, awake alert ENT - other findings: posterior scalp sutured laceration nonbleeding, noninfected Heart: no murmur, no gallops, no rubs, normal peripheral pulses Heart - other findings: sinus tach Respiratory: CTAB, no wheezes, no rales, no ronchi, normal chest expansion, no tachypnea, normal percussion Gastrointestinal: soft, non-tender, non-distended, normal bowel sounds, no palpable masses, no hepatomegaly, no splenomegaly, no bruit Extremities: no edema Neurological - other findings: mild b/l hand tremor; ASE < 8 Psychiatric: normal affect, normal behavior, A&O x 3 Hosp A/P (1) Alcoholic hepatitis Code(s): K70.10 - ALCOHOLIC HEPATITIS WITHOUT ASCITES Status: Acute (2) Alcohol withdrawal Code(s): F10.239 - ALCOHOL DEPENDENCE WITH WITHDRAWAL, UNSPECIFIED Status: Acute (3) Hypokalemia Code(s): E87.6 - HYPOKALEMIA Status: Acute (4) MARY ANN (acute kidney injury) Code(s): N17.9 - ACUTE KIDNEY FAILURE, UNSPECIFIED Status: Resolved (5) DM2 (diabetes mellitus, type 2) Status: Chronic Qualifiers: Diabetes mellitus halfway insulin use: without halfway use Diabetes mellitus complication status: without complication Qualified Code(s): E11.9 - Type 2 diabetes mellitus without complications - Plan -reduce scheduled librium to 25mg bid -hypokalemia improving, continue supplementation #head laceration - tramadol for pain; will need sutures removed ELSO 1-2 midnights
[2019-11-15] MEDS: traMADol HCl 50 MG TAB PO PRN (04:52)
[2019-11-15 05:04] LABS: Anion Gap 9 mmol/L (10-20); BUN (Urea Nitrogen) 8 mg/dL (8.9-20.6); Calc. Creatinine Clearance 157 mL/min (70-130); Calcium 8.2 mg/dL (7.8-10.44); Carbon Dioxide 30 mmol/L (22-29); Chloride 101 mmol/L (98-107); Estimated GFR-MDRD Greater than 90; Glucose 85 mg/dL (70-105); Magnesium 2.1 mg/dL (1.6-2.6); Potassium 3.3 mmol/L (3.5-5.1); Sodium 137 mmol/L (136-145)
[2019-11-15] MEDS: Acetaminophen 325 MG TAB PO PRN (07:36)
[2019-11-15] MEDS: Thiamine 100 MG TAB PO SCH (07:36)
[2019-11-15] MEDS: Enoxaparin Sodium 30 MG/0.3 ML SYRINGE SC SCH (07:37)
[2019-11-15] MEDS: chlordiazePOXIDE HCl 25 MG CAP PO SCH (07:37)
[2019-11-15] MEDS: Folic Acid 1 MG TAB PO SCH (07:37)
[2019-11-15] MEDS: Potassium Chloride 20 MEQ TAB PO SCH ×2 (10:02→11:37)
[2019-11-15 11:16] VITALS: BP 121/87; TEMP 97.7
--- NOTE | 2019-11-17 08:27 | DIS ---
DATE OF ADMISSION: 11/13/2019 DATE OF DISCHARGE: 11/15/2019 HOSPITAL COURSE: Mr. Romo is a 49-year-old male with a medical history of alcohol abuse, alcohol withdrawal, including delirium tremens, presented after a fall and laceration to the posterior part of the scalp. The superior-posterior laceration was sutured and bleeding stopped. The patient started exhibiting alcohol withdrawal symptoms and started on Librium scheduled and Ativan p.r.n. breakthrough. The patient remained with minimal withdrawal symptoms two days after presentation despite being on a low dose of Librium. Of note, prior to discharge, the patient requested two week supply of Librium, which was not indicated, after which the patient exhibited some irritation and left promptly. The patient also presented with severe asymptomatic hypokalemia, which was corrected. Post discharge, the patient was given 40 mEq tablet to complete supplementation after he refused to remain in the hospital for longer. MEDICATIONS: New medications; Librium 10 mg b.i.d. four tablets for two additional days. Continued medications; thiamine and vitamin B12. Job ID: [id number]
== END 2019-11-15 11:41 | disposition home or self-care (01) | DRG 641 ==
LOC: ERS 11:04 → 2NO 12:43 → OBSVTOIN 12:43 → 2NO 14:20
PROVIDERS: ADMIT Internal Medicine; ATTEND Internal Medicine
PROC: 0HQ0XZZ Repair Scalp Skin, External Approach (ICD-10-PCS; principal; 2019-11-13)
DX: E87.6 Hypokalemia (principal); F10.239 Alcohol dependence with withdrawal, unspecified; N17.9 Acute kidney failure, unspecified; K70.10 Alcoholic hepatitis without ascites; E87.2 Acidosis; E87.3 Alkalosis; E11.9 Type 2 diabetes mellitus without complications; S01.01XA Laceration without foreign body of scalp, initial encounter
CPT/HCPCS: 36415; 36416; 80048; 83735; 84484; 96365; 96375; 96376; J1650; J2060; J2405; J3475; J3480; J7050